=== PATIENT | male | born 1950 | race Caucasian/White ===

== ENCOUNTER → 2016-02-15 | Outpatient (CLI) | payer MEDICARE, OTHER ==
[~2016-02-15] MED LIST: ATOR40TA2 PO; HCTZ12.5T PO; LIRA0.6P2 SQ; LSNP20T PO; METF1000 PO; METO-272 PO; NIAC500C3 PO; OMG1KC PO
[2016-02-15 08:09] LABS: BASOPHILS % (AUTO) 1 % (0-2); EOSINOPHILS # (AUTO) 0.5 10^3uL; EOSINOPHILS % (AUTO) 6 % (0-4); LYMPHOCYTES # (AUTO) 2.1 X10^3; MEAN CORPUSCULAR HEMOGLOBIN 30.1 PG (26.0-34.0); MEAN CORPUSCULAR VOLUME 83 FL (80-100); MEAN PLATELET VOLUME 10.5 FL (6.0-9.5); MONOCYTES # (AUTO) 0.7 X10^3; MONOCYTES % (AUTO) 9 % (3-11); NEUTROPHILS # (AUTO) 4.1 X10^3; NEUTROPHILS % (AUTO) 56 % (51-67); PLATELET COUNT 197 10^3uL (150-450); WHITE BLOOD COUNT 7.45 10^3uL (4.0-11.0)
[2016-02-15 08:14] LABS: BILIRUBIN,URINE Negative (Negative); CLARITY,URINE Clear; COLOR,URINE Yellow; GLUCOSE, URINE (UA) Negative (Negative); LEUKOCYTE ESTERASE ,URINE Negative (Negative); UROBILINOGEN,URINE 0.2 mg/dL (0.2-1.0)
[2016-02-15 08:16] LABS: MEAN CORPUSCULAR HGB CONC 36.2 g/dL (31.0-37.0)
[2016-02-15 08:28] LABS: ALBUMIN 4.8 g/dL (3.4-5.0); ANION GAP 14.3 MEQ/L (3-15); CALCULATED IONIZED CALCIUM 4.2 mg/dL (3.8-4.6); TOTAL PROTEIN 7.6 g/dL (6.4-8.5)
== END ==
LOC: LAB 07:44
PROVIDERS: ATTEND Physician Assistant Medical
DX: E11.9 Type 2 diabetes mellitus without complications (principal); R30.0 Dysuria
CPT/HCPCS: 36415; 80053; 80061; 81003; 83036; 85025

== ENCOUNTER → 2016-05-29 | Outpatient (CLI) | payer MEDICARE, OTHER ==
[2016-05-29 08:40] LABS: BASOPHILS % (AUTO) 1 % (0-2); EOSINOPHILS # (AUTO) 0.5 10^3uL; EOSINOPHILS % (AUTO) 6 % (0-4); LYMPHOCYTES # (AUTO) 1.9 X10^3; MEAN CORPUSCULAR HEMOGLOBIN 29.4 PG (26.0-34.0); MEAN CORPUSCULAR HGB CONC 34.8 g/dL (31.0-37.0); MEAN CORPUSCULAR VOLUME 84 FL (80-100); MEAN PLATELET VOLUME 10.5 FL (6.0-9.5); MONOCYTES # (AUTO) 0.7 X10^3; MONOCYTES % (AUTO) 9 % (3-11); NEUTROPHILS # (AUTO) 4.3 X10^3; NEUTROPHILS % (AUTO) 57 % (51-67); PLATELET COUNT 180 10^3uL (150-450); WHITE BLOOD COUNT 7.44 10^3uL (4.0-11.0)
[2016-05-29 09:17] LABS: ALBUMIN 4.6 g/dL (3.4-5.0); ANION GAP 14.5 MEQ/L (3-15); CALCULATED IONIZED CALCIUM 4.4 mg/dL (3.8-4.6); TOTAL PROTEIN 7.3 g/dL (6.4-8.5)
== END ==
LOC: LAB 08:20
PROVIDERS: ATTEND Physician Assistant Medical
DX: E11.9 Type 2 diabetes mellitus without complications (principal); Z12.5 Encounter for screening for malignant neoplasm of prostate
CPT/HCPCS: 36415; 80053; 80061; 83036; 85025; G0103; 84153